=== PATIENT | female | born 1995 | race Hispanic/Latino ===

== ENCOUNTER 2019-03-15 14:29 | Outpatient (CLI) | payer MEDICAID ==
[2019-03-15 15:17] VITALS: BP 113/74
== END 2019-03-15 16:35 | disposition home or self-care (01) ==
LOC: TRG 14:29
PROVIDERS: ATTEND Obstetrics & Gynecology
DX: O26.853 Spotting complicating pregnancy, third trimester (principal); Z3A.34 34 weeks gestation of pregnancy
CPT/HCPCS: 59025

== ENCOUNTER 2019-04-01 19:05 | Outpatient (CLI) | payer MEDICAID ==
[2019-04-01 20:23] VITALS: BP 113/71
[2019-04-01] MEDS ORDERED: LACTATED RINGERS 500 ML IV ONE (21:17)
== END 2019-04-01 22:18 | disposition home or self-care (01) ==
LOC: TRG 19:05
PROVIDERS: ATTEND Obstetrics & Gynecology
DX: O47.1 False labor at or after 37 completed weeks of gestation (principal); Z3A.37 37 weeks gestation of pregnancy
CPT/HCPCS: 59025

== ENCOUNTER 2019-04-18 22:58 | Inpatient (IN) | payer MEDICAID ==
[2019-04-19] MEDS ORDERED: TERBUTALINE 1 MG/1 ML INJ IVP PRN (03:51)
[2019-04-19] MEDS ORDERED: TERBUTALINE 1 MG/1 ML INJ SUB-Q PRN (03:51)
[2019-04-19] MEDS ORDERED: MINERAL OIL 30 ML ORAL LIQD PO PRN (03:51)
[2019-04-19] MEDS ORDERED: LIDOCAINE (2%) 20 MG/1 ML VIAL 20 ML MDV INFILTRATI ONE (03:51)
[2019-04-19] MEDS ORDERED: ePHEDrine SULFATE 50 MG/1 ML INJ IV PRN ×2 (03:51→11:36)
[2019-04-19] MEDS ORDERED: AMPICILLIN/NS 2 GM/100 ML 2 GM/100 ML BAG IV ONE (03:57)
[2019-04-19] MEDS ORDERED: OXYTOCIN 20 UNIT/1000ML DRIP 20 UNITS/1,000 ML BAG IV SCH ×3 (04:00→19:00)
[2019-04-19] MEDS ORDERED: OXYTOCIN DRIP 30 UNITS/500 ML BAG IV SCH (04:00)
[2019-04-19] MEDS: LACTATED RINGERS 1,000 ML IV SCH ×3 (04:00→12:05)
[2019-04-19] MEDS: BUTORPHANOL 2 MG/1 ML INJ IV PRN ×2 (04:15→07:16)
[2019-04-19 04:16] LABS: Hematocrit 34.9 % (30.3-42.9); Hemoglobin 11.7 gm/dl (10.1-14.3); Mean Corpuscular HGB Conc 34 % (30-34); Mean Corpuscular Volume 81 fl (79-97); Platelet Count 240 K/mm3 (140-440); Red Blood Count 4.32 M/mm3 (3.65-5.03); Red Cell Distribution Width 13.7 % (13.2-15.2)
[2019-04-19] MEDS ORDERED: AMPICILLIN/NS 1 GM/50 ML 1 GM/50 ML BAG IV SCH (07:59)
--- NOTE | 2019-04-19 08:58 | History and Physical Report ---
History of Present Illness Date of examination: 04/19/19 Date of admission: 04/19/19 01:04 Chief complaint: Labor History of present illness: Pt is a 24yo WF EDC 04/22/19; EGA 39 4/7 weeks presents to L&D complaining of RUC's q 4-6 mins. She received care at [facility] since 15 weeks and course has been unremarkable. records are available and GBS is Negative. Past History Past Medical History: no pertinent history Past Surgical History: no surgical history Family/Genetic History: none Social history: no significant social history, single - Obstetrical History Expected Date of Delivery: 04/22/19 Actual Gestation: 39 Week(s) 4 Day(s) : 3 Medications and Allergies Allergies Allergy/AdvReac Type Severity Reaction Status Date / Time No Known Allergies Allergy Unverified 02/07/19 16:42 Active Meds: Active Medications Butorphanol Tartrate (Stadol) 2 mg IV Q2H PRN PRN Reason: Pain, Moderate (4-6) Last Admin: 04/19/19 07:16 Dose: 2 mg Documented by: Ephedrine Sulfate (Ephedrine Sulfate) 10 mg IV Q2M PRN PRN Reason: Hypotension Oxytocin/Sodium Chloride (Pitocin/Ns 20 Unit/1000ml Drip) 20 units in 1,000 mls @ 125 mls/hr IV DIRECT CHIO Oxytocin/Sodium Chloride (Pitocin/Ns 30 Unit/500ml) 30 units in 500 mls @ 1 mls/hr IV TITR CHIO; Protocol Lactated Ringer's (Lactated Ringers) 1,000 mls @ 125 mls/hr IV DIRECT CHIO Last Admin: 04/19/19 04:00 Dose: 125 mls/hr Documented by: Ampicillin Sodium (Ampicillin/Ns 1 Gm/50 Ml) 1 gm in 50 mls @ 100 mls/hr IV Q4HR CHIO; Protocol Mineral Oil (Mineral Oil) 30 ml PO QHS PRN PRN Reason: Constipation Terbutaline Sulfate (Brethine) 0.25 mg SUB-Q ONCE PRN PRN Reason: Hyperstimulation/Hypertonicity Terbutaline Sulfate (Brethine) 0.25 mg IVP ONCE PRN PRN Reason: Hyperstimulation/Hypertonicity Review of Systems All systems: negative - Vital Signs Vital signs: Vital Signs Temp Resp 97.7 F 18 04/19/19 00:01 04/19/19 00:01 Temp Pulse Resp BP Pulse Ox 98.5 F 83 18 118/74 04/19/19 04:36 04/19/19 08:34 04/19/19 04:36 04/19/19 08:34 - Physical Exam Breasts: Positive: deferred Cardiovascular: Regular rate Lungs: Positive: Clear to auscultation Abdomen: Positive: normal appearance Genitourinary (Female): Positive: normal external genitalia Uterus: Positive: enlarged Extremities: Positive: normal - Obstetrical FHR: category 1 Uterine Contraction Monitor Mode: External Cervical Dilatation: 5 Cervical Effacement Percentage: 60 station: -3 Uterine Contraction Pattern: Irregular Uterine Tone Measurement Phase: Contraction Uterine Contraction Intensity: Mild Results Result Diagrams: 04/19/19 02:00 Abnormal lab results 04/19/19 Range/Units 02:00 WBC 12.8 H (4.5-11.0) K/mm3 MCH 27 L (28-32) pg All other labs normal. Assessment and Plan - Patient Problems (1) 39 weeks gestation of Onset Date: 04/19/19 Current Visit: Yes Status: Acute Plan to address problem: A: IUP @ 39 4/7 weeks in labor P: Admit to L&D for expectant vaginal delivery
[2019-04-19] MEDS ORDERED: NALOXONE 2 MG/2 ML INJ IV PRN (11:36)
--- NOTE | 2019-04-19 11:45 | Anesthesia Consultation ---
Anesthesia Consult and Med Hx Date of service: 04/19/19 - Airway Anesthetic Teeth Evaluation: Poor ROM Head & Neck: Adequate Mental/Hyoid Distance: Adequate Mallampati Class: Class II Intubation Access Assessment: Probably Good - Pulmonary Exam CTA: Yes - Cardiac Exam Cardiac Exam: RRR - Pre-Operative Health Status ASA Pre-Surgery Classification: ASA2 Proposed Anesthetic Plan: Epidural - Pulmonary Hx Smoking: No (QUIT 2 years ago) Hx Asthma: No Hx Respiratory Symptoms: No SOB: No COPD: No Home Oxygen Therapy: No Hx Pneumonia: No Hx Sleep Apnea: No - Cardiovascular System Hx Hypertension: No Hx Coronary Artery Disease: No Hx Heart Attack/AMI: No Hx Angina: No Hx Percutaneous Transluminal Coronary Angioplasty (PTCA): No Hx Cardia Arrhythmia: No Hx Pacemaker: No Hx Internal Defibrillator: No Hx Valvular Heart Disease: No Hx Heart Murmur: No Hx Peripheral Vascular Disease: No - Central Nervous System Hx Neuromuscular Disorder: No Hx Seizures: No CVA: No Hx Back Pain: No Hx Psychiatric Problems: No - Gastrointestinal Hx Ulcer: No Hx Gastroesophageal Reflux Disease: No - Endocrine Hx Renal Disease: No Hx End Stage Renal Disease: No Hx Cirrhosis: No Hx Liver Disease: No Hx Insulin Dependent Diabetes: No Hx Non-Insulin Dependent Diabetes: No Hx Thyroid Disease: No Hx Hypothyroidism: No Hx Hyperthyroidism: No - Hematic Hx Anemia: No Hx Sickle Cell Disease: No - Other Systems Hx Alcohol Use: Yes (RARELY) Hx Substance Use: No Hx Cancer: No Hx Obesity: Yes (BMI 31.7)
[2019-04-19] MEDS ORDERED: fentaNYL-BUPIV 2 MCG/ML-0.125% 200 MCG/100 ML BAG EPIDURAL SCH (12:00)
[2019-04-19] MEDS ORDERED: DEXMEDETOMIDINE 200 MCG/2 ML VIAL IV ONE (17:39)
[2019-04-19] MEDS ORDERED: LIDOCAINE MPF (2%) 20 MG/1 ML VIAL 5 ML ONE ×2 (17:43)
[2019-04-19] MEDS ORDERED: SODIUM CHLORIDE 0.9% IRR 1,500 ML BOTTLE IR ONE (17:49)
[2019-04-19] MEDS ORDERED: WATER FOR IRRIG STERILE 1,500 ML BOTTLE IR ONE (17:49)
--- NOTE | 2019-04-19 17:49 | Anesthesia Day of Surgery ---
Anesthesia Day of Surgery - Day of Surgery Patient Examined: Yes Patient H&P Reviewed: Yes Patient is NPO: Yes Beta Blockers: No Cardiac Clearance: No Pulmonary Clearance: No Adrian's Test: N/A
[2019-04-19] MEDS ORDERED: METOCLOPRAMIDE 10 MG/2 ML INJ IV ONE (18:00)
[2019-04-19] MEDS ORDERED: BICITRA ORAL LIQD 30ML PO ONE (18:00)
[2019-04-19] MEDS ORDERED: FAMOTIDINE 20 MG/2 ML INJ IV ONE (18:00)
[2019-04-19] MEDS ORDERED: LACTATED RINGERS 1,000 ML IV SCH (18:00)
[2019-04-19] MEDS ORDERED: ceFAZolin/Water 2 GM/20 ML 2 GM/20 ML SYRINGE IV NR (18:00)
[2019-04-19] MEDS ORDERED: PHENYLEPHRINE 10 MG/1 ML INJ SDV ONE (18:02)
--- NOTE | 2019-04-19 18:06 | Ultrasound Report ---
US OB limited INDICATION: placenta position.. TECHNIQUE: Limited grayscale and color Doppler OB ultrasound. COMPARISON: None available. FINDINGS: There is a single living intrauterine in cephalic position with heart rate of 1 43 bp m. Placenta is anterior and right lateral, grade 2. Cervical length measures 3.1 cm. IMPRESSION: 1. Grade 2 anterior and right lateral placenta without acute abnormality. Signer Name: Jaydon Lopez MD Signed: 04/19/2019 6:02 PM Workstation Name: [id number]
[2019-04-19] MEDS ORDERED: OXYTOCIN 10 UNIT/1 ML INJ ONE (18:19)
--- NOTE | 2019-04-19 18:41 | Operative Report ---
Operative Report Operative Report: Date of procedure: 04/19/2019 Pre-operative diagnosis: 1. Intrauterine at 39 4/7 weeks 2. Non- Reassuring Surveillance 3. Desires permanent sterilization Post-operative diagnosis: same Procedure name(s): 1. Primary low transverse section 2. Bilateral Tubal Ligation Surgeon: Andrés Arias MD Inside [employer]: None Anesthesia: Epidural anesthesia by Tess Treviño CRNA EBL: 600 mL's Findings: A 2750 gm female Apgars 8 at 1 minute 9 at 5 minutes. Clear amniotic fluid. Suspected abruptio placenta. Normal uterus with normal tubes and ovaries bilaterally. Procedure: After the patient was prepped and draped in usual sterile fashion, and after satisfactory level of epidural anesthesia was obtained, the skin knife was used to make a transverse skin incision. The incision was incised down to layer of the fascia, which was nicked in the midline and extended laterally using the Bovie cautery. The rectus muscles were dissected off the rectus fascia both superiorly and inferiorly. The rectus bellies in the midline, and the peritoneum was entered under direct visualization. The peritoneal incision was extended superiorly and inferiorly. A bladder flap was created and the bladder blade was then placed. The uterus was scored in a curvilinear linear fashion, entered in the midline revealing clear amniotic fluid. The 's head was delivered onto the surgical field, and the oropharynx and nasopharynx were bulb suctioned. The rest of the 's body was delivered, cord was doubly clamped and cut and the infant was handed to the awaiting respiratory team. The placenta was manually removed from the uterus, and the uterus removed from its normal anatomical position. After gentle uterine lavage, the incision was inspected and found to be without extensions. It was then closed in 2 layers using 0 Vicryl suture in a running interlocking fashion, the second layer imbricating the first. After good hemostasis was achieved, copious amounts or irrigation was performed, and the gutters were suctioned free of blood and blood clots. Attention was then turned to the tubal ligation. First the right fallopian tube was grasped using the [place], and after identifying the fimbriated end of the tube, a portion of the proximal tube was excised and sent to pathology. The same procedure was performed on the left fallopian tube. The left fallopian tube was grasped using the [place], and after identifying the fimbriated end of the tube, a portion of the proximal left tube was excised and sent to pathology. The uterus was returned to it's normal anatomical position. Next, the peritoneum was re-approximated using 3-0 Vicryl suture in a running interlocking fashion, and then the rectus muscles were loosely re-approximated using 3-0 Vicryl suture in a [id number]-an-nteyp configuration. The fascia was then re-approximated using #1 Vicryl suture in running interlocking fashion. The subcutaneous layer was made hemostatic using Bovie cautery, and the skin edges re-approximated using 4-0 Vicryl suture in a sub-cuticular fashion. Patient tolerated the procedure well was transported to recovery in stable condition.
[2019-04-19] MEDS ORDERED: WITCH HAZEL/ GLYCERIN PAD TP PRN (18:43)
[2019-04-19] MEDS ORDERED: NALOXONE 0.4 MG/1 ML INJ IV PRN (18:43)
[2019-04-19] MEDS ORDERED: MAGNESIUM HYDROXIDE (MOM) ORAL LIQD UDC PO PRN (18:43)
[2019-04-19] MEDS ORDERED: ONDANSETRON 4 MG/2 ML INJ IV PRN ×2 (18:43→18:55)
[2019-04-19] MEDS ORDERED: LANOLIN/ZINC/DIMETHICONE (LANSINOH) 7 GM TP PRN (18:43)
[2019-04-19] MEDS ORDERED: ACETAMINOPHEN 325 MG TAB PO PRN (18:43)
[2019-04-19] MEDS ORDERED: KETOROLAC 30 MG/1 ML INJ IV PRN (18:43)
[2019-04-19] MEDS ORDERED: SIMETHICONE 80 MG CHEW TAB PO PRN (18:43)
[2019-04-19] MEDS ORDERED: SENNOSIDES 8.6 MG TAB PO PRN (18:43)
[2019-04-19] MEDS ORDERED: PROMETHAZINE 25 MG RECT SUPP PR PRN (18:43)
[2019-04-19] MEDS ORDERED: HYDROmorphone 1 MG/1 ML INJ IV PRN (18:55)
--- NOTE | 2019-04-19 18:55 | Post Anesthesia Evaluation ---
- Post Anesthesia Evaluation Patient Participated: Yes Airway Patent: Yes Stable Respiratory Function: Yes Nausea/Vomiting: No Temp > 96.8F: Yes Pain Manageable: Yes Adequeate Hydration: Yes Anesthesia Complications: No Block Receding Appropriately: Yes Patient on Ventilator: No
[2019-04-19] MEDS ORDERED: D5W/LACTATED RINGERS 1,000 ML IV SCH (19:00)
[2019-04-19] MEDS: HYDROmorphone 1 MG/1 ML INJ IV PRN (23:02)
[2019-04-20] MEDS ORDERED: ceFAZolin/NS 1 GM/50 ML 1 GM/50 ML BAG IV SCH ×2 (02:00→13:00)
[2019-04-20] MEDS ORDERED: MEASLES, MUMPS & RUBELLA 12,500 UNIT/0.5 ML VACCINE SUB-Q ONE (06:00)
[2019-04-20] MEDS ORDERED: TETANUS,DIPH,PERTUSS(ACELL) VACCINE 0.5 ML SYRINGE IM ONE (06:00)
[2019-04-20] MEDS: HYDROmorphone 1 MG/1 ML INJ IV PRN (06:03)
[2019-04-20 06:39] LABS: Hematocrit 26.8 % (30.3-42.9); Hemoglobin 8.9 gm/dl (10.1-14.3)
[2019-04-20] MEDS: PRENATAL VIT27-FE FUMARATE-FOLIC ACID VIT TAB PO SCH (09:35)
[2019-04-20] MEDS: FERROUS SULFATE 325 MG TAB PO SCH (09:35)
[2019-04-20] MEDS: oxyCODONE /ACETAMINOPHEN 5-325MG TAB PO PRN ×2 (09:36→17:54)
[2019-04-20] MEDS: IBUPROFEN 800 MG TAB PO PRN ×2 (11:47→23:27)
--- NOTE | 2019-04-20 12:42 | Progress Note ---
Assessment and Plan - Patient Problems (1) 39 weeks gestation of Onset Date: 04/19/19 Current Visit: Yes Status: Resolved (2) Status post Onset Date: 04/20/19 Current Visit: Yes Status: Resolved Plan to address problem: A: S/P Primary C Section with BTL - POD#1 Doing well Asymptomatic anemia - stable P: Continue RPOC Anticipate discharge in 24-48hrs (3) Acute blood loss anemia Onset Date: 04/20/19 Current Visit: Yes Status: Resolved Subjective - Subjective Date of service: 04/20/19 Principal diagnosis: s/p Primary C Section with BTL - POD #1 Interval history: Pt is feeling well without complaints. Bleeding improved. Patient reports: appetite normal, voiding normally, pain well controlled, flatus, ambulating normally, no dizzy ambulation, no nauseated [place]: doing well, nursing well, bottle feeding Objective - Vital Signs Latest vital signs: Vital Signs Temp Pulse Resp BP BP Pulse Ox 04/20/19 11:47 18 04/20/19 08:40 98.3 F 83 18 118/74 04/20/19 06:33 18 04/20/19 06:03 18 04/20/19 04:00 98 F 75 18 111/78 04/20/19 02:03 18 04/20/19 01:33 18 04/20/19 00:00 98.7 F 63 16 126/67 04/19/19 23:32 18 04/19/19 23:02 18 04/19/19 21:05 18 04/19/19 20:45 98.3 F 90 18 91/46 96 04/19/19 20:35 15 04/19/19 20:30 102 H 18 83/47 100 04/19/19 20:15 92 H 17 77/52 99 04/19/19 20:00 97.5 F L 83 17 95/53 99 04/19/19 19:45 86 13 88/39 100 04/19/19 19:30 79 15 88/38 97 04/19/19 19:15 84 11 L 85/32 96 04/19/19 19:10 82 16 86/35 94 04/19/19 19:05 97.5 F L 78 14 83/32 95 04/19/19 19:00 79 19 92/31 96 04/19/19 18:55 97.2 F L 89 15 79/30 95 04/19/19 17:40 61 64 L 04/19/19 17:34 98 H 126/80 04/19/19 17:30 94 H 97 04/19/19 17:25 85 98 04/19/19 17:20 92 H 93 04/19/19 17:15 88 97 04/19/19 17:14 94 H 117/69 04/19/19 17:10 90 97 04/19/19 17:05 97 H 97 04/19/19 17:00 94 H 98 04/19/19 16:55 89 126/72 98 04/19/19 16:50 86 97 04/19/19 16:45 92 H 97 04/19/19 16:40 88 97 04/19/19 16:35 96 H 98 04/19/19 16:34 86 119/71 04/19/19 16:30 92 H 98 04/19/19 16:25 96 H 98 04/19/19 16:20 91 H 98 04/19/19 16:15 95 H 98 04/19/19 16:10 96 H 91 04/19/19 16:06 97 H 113/58 04/19/19 16:05 101 H 99 04/19/19 16:00 86 97 04/19/19 15:55 94 H 98 04/19/19 15:50 91 H 99 04/19/19 15:47 97 H 92 04/19/19 15:45 86 97 04/19/19 15:42 84 98/55 04/19/19 15:40 84 97 04/19/19 15:35 83 97 04/19/19 15:30 85 96 04/19/19 15:25 80 97 04/19/19 15:20 84 96 04/19/19 15:15 90 98 04/19/19 15:10 88 97 04/19/19 15:05 92 H 97 04/19/19 15:00 88 97 04/19/19 14:55 92 H 96 04/19/19 14:50 84 95 04/19/19 14:45 82 96 04/19/19 14:42 93 H 97/51 04/19/19 14:40 83 96 04/19/19 14:35 89 96 04/19/19 14:30 88 97 04/19/19 14:25 85 98 04/19/19 14:20 87 97 04/19/19 14:15 98 H 98 04/19/19 14:10 85 97 04/19/19 14:05 85 98 04/19/19 14:00 95 H 98 04/19/19 13:55 89 99 04/19/19 13:50 92 H 98 04/19/19 13:45 94 H 100 04/19/19 13:40 101 H 98 04/19/19 13:35 104 H 116/70 98 04/19/19 13:34 97.6 F 04/19/19 13:30 102 H 98 04/19/19 13:25 99 H 98 04/19/19 13:20 96 H 107/69 100 04/19/19 13:15 98 H 100 04/19/19 13:10 99 H 99 04/19/19 13:05 97 H 112/73 100 04/19/19 13:00 98 H 99 04/19/19 12:55 96 H 100 04/19/19 12:50 87 112/70 100 04/19/19 12:45 89 100 Intake and Output 04/19/19 04/20/19 04/20/19 22:59 06:59 14:59 Intake Total 1000 1080 360 Output Total 125 1650 300 Balance 875 -570 60 Intake: IV 1000 Oral 480 360 Intake, Free Water 600 Output: Urine 125 1650 300 Indwelling Catheter 1450 Void 200 300 Other: Total, Intake Amount 480 360 Total, Output Amount 200 300 - Exam Breasts: Present: deferred Abdomen: Present: normal appearance, soft Uterus: Present: normal, firm, fundal height below umbilicus Extremities: Present: normal Incision: Present: normal, dry, intact, dressed - Labs Labs: Abnormal lab results 04/20/19 Range/Units 06:08 Hgb 8.9 L (10.1-14.3) gm/dl Hct 26.8 L D (30.3-42.9) % Laboratory Tests 04/19/19 04/19/19 04/19/19 02:00 02:00 02:00 WBC 12.8 H RBC 4.32 Hgb 11.7 Hct 34.9 MCV 81 MCH 27 L MCHC 34 RDW 13.7 Plt Count 240 Syphilis IgG Antibody Non-reactive Blood Type B NEGATIVE Antibody Screen Negative 04/20/19 06:08 WBC RBC Hgb 8.9 L Hct 26.8 L D MCV MCH MCHC RDW Plt Count Syphilis IgG Antibody Blood Type Antibody Screen
[2019-04-20] MEDS: guaiFENesin DM 200/20 MG ORAL LIQD 10 ML PO PRN (17:54)
[2019-04-21] MEDS: guaiFENesin DM 200/20 MG ORAL LIQD 10 ML PO PRN ×2 (01:12→09:20)
[2019-04-21] MEDS: oxyCODONE /ACETAMINOPHEN 5-325MG TAB PO PRN (04:41)
[2019-04-21] MEDS ORDERED: TETANUS,DIPH,PERTUSS(ACELL) VACCINE 0.5 ML SYRINGE IM ONE (06:00)
[2019-04-21] MEDS: FERROUS SULFATE 325 MG TAB PO SCH (09:21)
[2019-04-21] MEDS: PRENATAL VIT27-FE FUMARATE-FOLIC ACID VIT TAB PO SCH (09:21)
--- NOTE | 2019-04-21 11:25 | Progress Note ---
Assessment and Plan - Patient Problems (1) 39 weeks gestation of Onset Date: 04/19/19 Current Visit: Yes Status: Resolved (2) Status post Onset Date: 04/20/19 Current Visit: Yes Status: Resolved Plan to address problem: A: S/P Primary C Section with BTL - POD#2 Doing well Asymptomatic anemia - stable P: May go home today. (3) Acute blood loss anemia Onset Date: 04/20/19 Current Visit: Yes Status: Resolved Subjective - Subjective Date of service: 04/21/19 Principal diagnosis: s/p Primary C Section with BTL - POD #2 Interval history: Pt is feeling well without complaints. She is tolerating a reg diet without nausea or vomiting, ambulating and voiding without difficulty. She wants to go home today. Patient reports: appetite normal, voiding normally, pain well controlled, flatus, ambulating normally, no dizzy ambulation, no nauseated Secretary: doing well, nursing well, bottle feeding Objective - Vital Signs Latest vital signs: Vital Signs Temp Pulse Resp BP BP BP Pulse Ox 04/21/19 08:01 98.2 F 83 20 127/85 95 04/21/19 00:51 98.0 F 86 20 118/80 94 04/20/19 17:54 18 04/20/19 16:00 99.3 F 87 18 120/80 04/20/19 11:47 18 Intake and Output 04/20/19 04/21/19 04/21/19 22:59 06:59 14:59 Intake Total 240 120 480 Balance 240 120 480 Intake: Oral 240 120 480 Other: Total, Intake Amount 120 120 480 # Voids Void 1 1 1 - Exam Breasts: Present: deferred Abdomen: Present: normal appearance, soft Uterus: Present: normal, firm, fundal height below umbilicus Extremities: Present: normal Incision: Present: normal, dry, intact
[2019-04-21] MEDS: HYDROcodone/ACETAMINOPHEN 5-325 MG TAB PO PRN ×2 (11:34→15:37)
--- NOTE | 2019-04-21 13:13 | Discharge Summary ---
Providers - Providers Date of Admission: 04/19/19 01:04 Date of discharge: 04/21/19 Attending physician: JERONIMO URBINA Primary care physician: JERONIMO URBINA Hospitalization Reason for admission: active labor, IUP at term Delivery: Procedure: section, bilateral tubal ligation, primary low transverse Episiotomy: none Laceration: none Incision: normal, dry, intact Other procedures: tubal ligation complications: none Discharge diagnosis: IUP at term delivered [place] baby: female Hospital course: Pt is a 24yo WF EDC 04/22/19; EGA 39 4/7 weeks who presented to L&D complaining of RUC's q 4-6 mins. She received care at [facility] since 15 weeks and course has been unremarkable. She was admitted and started on pitocin, but developed a non-reassuring tracing with heavy vaginal bleeding. She was therefore delivered by an uncomplicated C Section with BTL. Post operative course was uneventful, and by POD #2 she was tolerating a reg diet without nausea or vomiting, ambulating and voiding without difficulty. She was therefore discharged to home on POD #2 in stable condition. Condition at discharge: Good Disposition: DC-01 TO HOME OR SELFCARE - Discharge Diagnoses (1) 39 weeks gestation of Status: Resolved (2) Status post Status: Resolved (3) Acute blood loss anemia Status: Resolved Plan - Discharge Medications Prescriptions: Ferrous Sulfate [Feosol 325 MG tab] 325 mg PO BID #60 tablet Ibuprofen [Motrin 800 MG tab] 800 mg PO Q6H PRN #30 tablet PRN Reason: Pain, Mild (1-3) HYDROcodone/APAP 5-325 [[place] 5-325 mg TAB] 1 each PO Q6HR PRN #30 tablet PRN Reason: Pain, Moderate (4-6) Vit-Fe Fumar-FA [ Vitamin] 1 each PO QDAY #30 tablet - Provider Discharge Summary Activity: routine, no sex for 6 weeks, no heavy lifting 4 weeks, no strenuous exercise Diet: routine Instructions: routine Additional instructions: [] Smoking cessation referral if applicable(refer to patient education folder for contact #) [] Refer to [facility] Booklet Call your doctor immediately for: * Fever > 100.5 * Heavy vaginal bleeding ( >1 pad per hour) * Severe persistent headache * Shortness of breath * Reddened, hot, painful area to leg or breast * Drainage or odor from incision. * Keep incision clean and dry at all times and follow doctor's instructions regarding bathing/showering - Follow up plan Follow up: JERONIMO URBINA MD [Primary Care Provider] - 14 Days BIRD MILLER CNM [Advanced Practice Nurse] - 14 Days
[2019-04-21 16:17] VITALS: BP 119/78
== END 2019-04-21 16:00 | disposition home or self-care (01) | DRG 765 ==
LOC: TRG 22:58 → LD 04-19 01:04 → TRG 04-19 01:04 → OBSVTOIN 04-19 01:04 → OB 04-19 20:46
PROVIDERS: ADMIT Obstetrics & Gynecology; ATTEND Obstetrics & Gynecology
PROC: 10D00Z1 Extraction of Products of Conception, Low, Open Approach (ICD-10-PCS; principal; 2019-04-19)
PROC: 0UB70ZZ Excision of Bilateral Fallopian Tubes, Open Approach (ICD-10-PCS; 2019-04-19)
DX: O76 Abnormality in fetal heart rate and rhythm complicating labor and delivery (principal); D62 Acute posthemorrhagic anemia; Z87.891 Personal history of nicotine dependence; O99.214 Obesity complicating childbirth; Z3A.39 39 weeks gestation of pregnancy; Z37.0 Single live birth; O90.81 Anemia of the puerperium; Z30.2 Encounter for sterilization
CPT/HCPCS: 36415; 76815; 85014; 85018; 85027; 86592; 86850; 86900; 86901; 88302; 88307; 90471; 90715; G0378; J0290; J0595; J0690; J1170; J1885; J2370; J2590; J2765; J3490; J7120; J7121